=== PATIENT | female | born 1995 ===

== ENCOUNTER 2023-12-29 17:55 | Inpatient (IN) | payer BC ==
[2023-12-29] MEDS ORDERED: Lidocaine 1% 50 ML MDV INJECT PRN (18:40)
[2023-12-29] MEDS ORDERED: Sodium Chloride 0.9% 10 ML Syringe FLUSH PRN (18:40)
[2023-12-29] MEDS ORDERED: Nalbuphine 10 MG/1 ML Vial IVPUSH PRN (18:40)
[2023-12-29] MEDS ORDERED: Water For Irrigation,Sterile 1,000 ML Container IRR PRN (18:40)
[2023-12-29] MEDS ORDERED: Methylergonovine 0.2 MG/1 ML Amp IM PRN (18:40)
[2023-12-29] MEDS ORDERED: Misoprostol 200 MCG Tab PO PRN (18:40)
[2023-12-29] MEDS ORDERED: Tranexamic Acid IN NACL,ISO-OS 1,000 MG in Premix Bag 1 BAG IV PRN (18:40)
[2023-12-29] MEDS ORDERED: Carboprost Tromethamine 250 MCG/1 mL Vial IM PRN (18:40)
[2023-12-29] MEDS ORDERED: Sodium Chloride 0.9% 2.5 ML Syringe FLUSH PRN (18:40)
[2023-12-29] MEDS ORDERED: Ondansetron 4 MG/2 ML SDV IVPUSH PRN (18:40)
[2023-12-29] MEDS ORDERED: Sodium Chloride 0.9% 20 ML SDV IV PRN (18:40)
[2023-12-29] MEDS ORDERED: Lactated Ringers 1,000 ML IV SCH (18:45)
[2023-12-29] MEDS ORDERED: Oxytocin/0.9 % Sodium Chloride 30 UNIT/500 ML BAG IV SCH (18:45)
[2023-12-29 19:04] LABS: HEMATOCRIT 34.5 % (37.0-47.0); HEMOGLOBIN 11.6 g/dL (12.0-16.0); MEAN CORPUSCULAR HEMOGLOBIN 26.6 pg (28.0-32.0); MEAN CORPUSCULAR HGB CONC 33.6 g/dL (32.0-36.0); MEAN CORPUSCULAR VOLUME 79.1 fL (83.0-99.0); MEAN PLATELET VOLUME 10.9 fL (9.4-12.3); PLATELET COUNT,PLT 334 K/uL (150-400); RED BLOOD CELL COUNT 4.36 M/uL (4.10-5.30); WHITE BLOOD CELL COUNT,WBC 13.52 K/uL (3.9-11.3)
[2023-12-29] MEDS: Butorphanol 2 MG/ML SDV IVPUSH PRN (19:48)
[2023-12-29] MEDS ORDERED: Lanolin 100% Cream 7 GM Tube TOP PRN (22:15)
[2023-12-29] MEDS: Witch Hazel Medicated Pads 40/Jar TOP PRN (23:37)
[2023-12-29] MEDS: Benzocaine/Menthol 20%-0.5% Spray 78 GM Cannister TOP PRN (23:37)
[2023-12-29] MEDS: Ibuprofen 800 MG Tab PO PRN (23:40)
[2023-12-29] MEDS: Docusate Sodium 100 MG Cap PO PRN (23:41)
[2023-12-30] MEDS: Acetaminophen 500 MG Tab PO PRN (03:25)
[2023-12-30 05:53] LABS: HEMOGLOBIN 10.1 g/dL (12.0-16.0)
== END 2023-12-30 23:30 | disposition home or self-care (01) | DRG 560 ==
LOC: MW.OB 17:55 → MW.OBCHECK 17:55 → MW.OB 18:40 → OBSVTOIN 21:26 → MW.OB 12-30 00:44
PROVIDERS: ADMIT Obstetrics & Gynecology; ATTEND Obstetrics & Gynecology
PROC: 10E0XZZ Delivery of Products of Conception, External Approach (ICD-10-PCS; principal; 2023-12-29)
PROC: 0KQM0ZZ Repair Perineum Muscle, Open Approach (ICD-10-PCS; 2023-12-29)
DX: O42.02 Full-term premature rupture of membranes, onset of labor within 24 hours of rupture (principal); O70.1 Second degree perineal laceration during delivery; Z3A.39 39 weeks gestation of pregnancy; Z37.0 Single live birth
CPT/HCPCS: 36415; 59025; 59300; 59409; 59414; 85014; 85018; 85027; 85460; 86592; 86850; 86900; 86901; A9270-GY; J0595; J2790